=== PATIENT | female | born 1995 | race Two or more races ===

== ENCOUNTER 2019-06-01 13:00 | Emergency (ER) | payer SELFPAY ==
[~2019-06-01] VITALS: Ht 157.5 cm; Wt 68.0 kg
--- NOTE | 2019-06-01 14:05 | NUR ---
pt is 23 yo female c/o midsternal chest pain off and on x1 year, pt denies ETOH, drugs, energy drinks, caffeine, pain increases when rotating shoulders forward, has seen PMD "they did not really think anything of it", pt is resting quietly on gurney, resp even and unlabored, waiting to be evaluated by provider
[2019-06-01 15:42] VITALS: BP 115/80
== END 2019-06-01 15:43 | disposition home or self-care (01) ==
LOC: ER 13:01
DX: R07.2 Precordial pain (principal)
CPT/HCPCS: 71045; 93005; 99283

== ENCOUNTER 2019-07-08 16:27 | Emergency (ER) | payer MEDICARE ==
[~2019-07-08] VITALS: Ht 154.9 cm; Wt 85.0 kg
[2019-07-08] MEDS ORDERED: normal saline 1000ML IV soln IVB ONE (17:40)
[2019-07-08] MEDS ORDERED: ketorolac tromethamine 15mg/ml inj. IV ONE (18:20)
[2019-07-08 18:26] LABS: BASOPHILS % (AUTO) 0.3 % (0-1); EOSINOPHILS % (AUTO) 0.3 % (0-6); HEMATOCRIT 39.7 % (35.0-45.0); HEMOGLOBIN 13.5 g/dl (12.0-16.0); LYMPHOCYTES # (AUTO) 0.8 X10'3 (1.1-4.8); LYMPHOCYTES % (AUTO) 11.4 % (21-51); MEAN CORPUSCULAR HEMOGLOBIN 28.3 PG (27.0-31.0); MEAN CORPUSCULAR VOLUME 83.1 FL (78-98); MEAN PLATELET VOLUME 8.9 FL (7.4-10.4); MONOCYTES # (AUTO) 0.5 X10'3 (0-0.9); MONOCYTES % (AUTO) 6.8 % (2-12); NEUTROPHILS # (AUTO) 5.8 X10'3 (1.8-7.7); NEUTROPHILS % (AUTO) 81.2 % (42-75); PLATELET COUNT 264 X10'3 (140-440); RED BLOOD COUNT 4.78 X10'6 (4.20-5.60); RED CELL DISTRIBUTION WIDTH 13.7 % (11.5-14.5); WHITE BLOOD COUNT 7.2 X10'3 (4.5-11.0)
[2019-07-08 18:28] LABS: COLOR,URINE YELLOW (Yellow); GLUCOSE, URINE NEGATIVE (Neg); KETONES,URINE 40 mg/dl (Neg); LEUKOCYTE ESTERASE ,URINE SMALL (Neg); NITRITES, URINE NEGATIVE (Neg); OCCULT BLOOD,URINE NEGATIVE (Neg); PROTEIN,URINE NEGATIVE (Neg); UA COLLECTION TYPE VOIDED; UROBILINOGEN,URINE 0.2 E.U/dL (0.2-1.0)
[2019-07-08 18:29] LABS: CLARITY,URINE SLIGHTLY CLOUDY (Clear)
[2019-07-08 18:37] LABS: D-DIMER 0.75 MG/L FEU (0-0.50)
[2019-07-08 18:38] LABS: URINE HCG NEGATIVE (NEG)
--- NOTE | 2019-07-08 18:43 | NUR ---
RECEIVED PT LAYIN BREE HER BACK WITH A NS BOLUS INFUSING TO THE LEFT AC PATENT WITHOUT INCIDENT. ASSESS PAIN 04/21 MEDICATED WITH TORADOL ORDERED. UPDATED PLAN OF CARE . WILL CONTINUE TO REASSESS.
[2019-07-08 18:45] LABS: ALANINE AMINOTRANSFERASE 22 U/L (12-78); ALBUMIN 3.6 G/DL (3.4-5.0); ALBUMIN/GLOBULIN RATIO 0.7 (1.1-1.5); ALKALINE PHOSPHATASE 61 IU/L (46-116); ANION GAP 11 (8-16); ASPARTATE AMINO TRANSFERASE 28 U/L (10-37); BILIRUBIN,TOTAL 0.3 MG/DL (0.1-1.0); BLOOD UREA NITROGEN 13 MG/DL (7-18); BUN/CREATININE RATIO 13.5 (6.6-38.0); CALCIUM 9.2 MG/DL (8.5-10.1); CHLORIDE 100 MMOL/L (99-107); CREATININE 0.96 MG/DL (0.40-0.90); GLUCOSE 87 MG/DL (70-104); POTASSIUM 3.6 MMOL/L (3.5-5.1); SODIUM 134 MMOL/L (135-145); TOTAL CARBON DIOXIDE 23.4 MMOL/L (24-32); TOTAL PROTEIN 8.6 G/DL (6.4-8.2); eGFR 73 ML/MIN
[2019-07-08 18:46] LABS: BACTERIA,URINE 2+ /HPF (Neg); RBC,URINE NONE SEEN /HPF (0-2); SQUAMOUS EPITHELIAL CELL,UR MODERATE /LPF (FEW)
[2019-07-08 18:47] LABS: MUCUS STRANDS FEW /LPF (Neg); WBC CLUMPS,URINE FEW /HPF (NEGATIVE)
[2019-07-08] MEDS ORDERED: iohexol 350MG/ML 100ml bottle IV ONE (19:20)
[2019-07-08] MEDS ORDERED: CEPH-572 PO (20:18)
[2019-07-08] MEDS ORDERED: cephalexin 250mg capsule PO ONE (20:20)
[2019-07-08 20:39] VITALS: BP 117/64
== END 2019-07-08 20:41 | disposition home or self-care (01) ==
LOC: ER 16:29
DX: S29.019A Strain of muscle and tendon of unspecified wall of thorax, initial encounter (principal); R07.89 Other chest pain; N39.0 Urinary tract infection, site not specified; M25.512 Pain in left shoulder; Z79.899 Other long term (current) drug therapy; X50.1XXA Overexertion from prolonged static or awkward postures, initial encounter; Y93.89 Activity, other specified; Y92.89 Other specified places as the place of occurrence of the external cause; Y99.8 Other external cause status
CPT/HCPCS: 36415; 71045; 71275; 80053; 81001; 81025; 84145; 85025; 85379; 87088; 93005; 96374; 99284; J1885; J7030; Q9967